=== PATIENT | male | born 1990 | race Two or more races ===

== ENCOUNTER 2021-07-10 14:37 | Emergency (ER) | payer BC, OTHER ==
[~2021-07-10] VITALS: Ht 185.4 cm; Wt 104.3 kg
[2021-07-10 16:15] VITALS: BP 122/80
== END 2021-07-10 16:22 | disposition home or self-care (01) ==
LOC: ER 14:37
DX: S29.011A Strain of muscle and tendon of front wall of thorax, initial encounter (principal); F12.10 Cannabis abuse, uncomplicated; W19.XXXA Unspecified fall, initial encounter; Y93.89 Activity, other specified; Y92.89 Other specified places as the place of occurrence of the external cause; Y99.8 Other external cause status
CPT/HCPCS: 71101